=== PATIENT | male | born 1985 | race Caucasian/White ===

== ENCOUNTER 2018-08-09 05:21 | Emergency (ER) | payer SELFPAY ==
[~2018-08-09] VITALS: Ht 177.8 cm; Wt 68.0 kg
[~2018-08-09 05:21] MED LIST: CLIN-62 PO; DOXY100C2 PO; HYDR1TAB PO; SULF1TAB38 PO
--- OUTSIDE RECORDS SUMMARY | 2018-08-09 05:27 | XMS REPORT ---
Author Author Migration, Doctor Organization [facility] Address Unknown Phone Unavailable Care Team Providers Care Rock Crusher Name Role Phone Migration, Doctor Unavailable Unavailable PROBLEMS Type Condition ICD9-CM Code XUT64-TC Code Onset Dates Condition Status SNOMED Code Problem Lumbago 724.2 Active 163782647 ALLERGIES No Information ENCOUNTERS Encounter Location Date Diagnosis [facility] [id number] [place] [phone] May, Acute bilateral low back pain without sciatica M54.5 [facility] [id number] [place] [phone] Sep, Acute pain of right knee M25.561 and Acute midline low back pain without sciatica M54.5 [facility] [id number] [place] [phone] Aug, Chest wall injury, initial encounter S29.9XXA [facility] [id number] [place] [phone] Jun, [facility] [id number] [place] [phone] Jun, [facility] [id number] [place] [phone] Dec, [facility] [id number] [place] [phone] Dec, [facility] [id number] [place] [phone] Dec, [facility] [id number] [place] [phone] Dec, [facility] [id number] [place] [phone] Feb, IMMUNIZATIONS No Known Immunizations SOCIAL HISTORY Never Assessed REASON FOR VISIT EMR-[facility] PLAN OF CARE VITAL SIGNS MEDICATIONS No Known Medications RESULTS No Results PROCEDURES No Known procedures INSTRUCTIONS MEDICATIONS ADMINISTERED No Known Medications
--- OUTSIDE RECORDS SUMMARY | 2018-08-09 05:27 | XMS REPORT | Continuity of Care Document ---
Author Organization Unknown Address Unknown Allergies Active Description Code Type Severity Reaction Onset Reported/Identified Relationship to Patient Clinical Status Yes Penicillins Drug Allergy N/A N/A 09/21/2008 Yes Sulfa (Sulfonamide Antibiotics) Drug Allergy N/A N/A 01/11/2014 Medications There is no data. Problems Date Dx Coded Attending Type Code Diagnosis Diagnosed By 02/22/2008 LUCHO FOX DO 388.70 EAR ACHE 02/22/2008 LUCHO FOX DO 522.5 PERIAPICAL ABSCESS WITHOUT SINUS 02/22/2008 LUHCO FOX DO 528.9 MOUTH PAIN 09/21/2008 LUCHO FOX DO 535.50 GASTRITIS 09/21/2008 LUCHO FOX DO 780.60 fever [as symptom] 01/11/2014 LUCHO FOX DO 724.2 LUMBAGO/ LOW BACK PAIN Procedures Code [place] [address] XRAY LUMBAR SPINE 2 OR 3 VIEWS 01/11/2014 Results There is no data. Encounters ACCT No. Visit Date/Time Discharge Status Pt. Type Provider Facility Loc./Unit Complaint [id number] 01/11/2014 10:35:00 01/11/2014 23:59:59 [facility] Outpatient LUCHO FOX DO [id number] 08/13/2012 15:07:00 08/13/2012 23:59:59 [facility] Outpatient [id number] 06/15/2017 14:45:00 06/15/2017 23:59:59 [facility] Outpatient DAVID KEN APRN [facility]
--- OUTSIDE RECORDS SUMMARY | 2018-08-09 05:27 | XMS REPORT ---
Author Author SHANNEN DEL VALLE [facility] Address [address] [place] [address] Care Team Providers Care Seasonal Delivery Driver Name Role Phone SHANNEN DEL VALLE Unavailable PROBLEMS Type Condition ICD9-CM Code LKV00-TY Code Onset Dates Condition Status SNOMED Code Problem Lumbago 724.2 Active 989350830 ALLERGIES Substance Reaction Event Type Date Status Penicillin V Potassium shortness of breath Drug Allergy May, Active Sulfa (sulfonamide Antibiotics) Unknown Non Drug Allergy May, Active ENCOUNTERS Encounter Location Date Diagnosis [facility] [id number] [place] [phone] May, Acute bilateral low back pain without sciatica M54.5 [facility] [id number] [place] [phone] Sep, Acute pain of right knee M25.561 and Acute midline low back pain without sciatica M54.5 [facility] [id number] [place] [phone] Aug, Chest wall injury, initial encounter S29.9XXA [facility] [id number] [place] [phone] Jun, [facility] [id number] [place] [phone] Jun, [facility] [address] [phone] Dec, [facility] [id number] [place] [phone] Dec, [facility] [address] [phone] Dec, [facility] [address] [facility] [id number] [place] [address] Dec, [facility] [address] [facility] [id number] [place] [address] Feb, IMMUNIZATIONS No Known Immunizations SOCIAL HISTORY Never Assessed REASON FOR VISIT back pain- says he fell from a building several months ago, has gotten worse las t couple weeks [id number] PLAN OF CARE Activity Details Follow Up 2 Months Reason: VITAL SIGNS Height 70 in 2017-06-15 Weight 153.0 lbs 2017-06-15 Temperature 98.2 degrees Fahrenheit 2017-06-15 Heart Rate 64 bpm 2017-06-15 Respiratory Rate 18 2017-06-15 BMI 21.95 kg/m2 2017-06-15 Blood pressure systolic 110 mmHg 2017-06-15 Blood pressure diastolic 70 mmHg 2017-06-15 MEDICATIONS Medication Instructions Dosage Frequency Start Date End Date Duration Status Ibuprofen 800 mg 1 tablet with food or milk as needed 8h Dec, Not-Taking cyclobenzaprine 10 mg 1 Tablet by Po route 3 times per day for muscle spasm Dec, Not-Taking Richardson 5-325 MG Orally every 6 hrs 1 tablet as needed 6h Sep, Not-Taking RESULTS Name Result Date Reference Range UA LONG DIP (IN HOUSE) 2017-06-15 Lot # [id number] Exp date 2018-01-20 Clarity clear Color yellow Odor none GLU negative BENNY negative KET negative SG 1.025 BLO negative pH 7.0 Protein negative URO 0.2 NIT negative MARISA negative Lot # [id number] Exp date June 2017 PROCEDURES Procedure Date Ordered Result Body Site URINALYSIS, AUTO, W/O SCOPE June 15, 2017 INSTRUCTIONS MEDICATIONS ADMINISTERED No Known Medications
--- OUTSIDE RECORDS SUMMARY | 2018-08-09 05:27 | XMS REPORT ---
Author Author HEATHER DIA Organization [facility] Address [address] [place] [address] Care Team Providers Care Spinner Continuous Name Role Phone HEATHER DIA Unavailable PROBLEMS Type Condition ICD9-CM Code CFL39-UR Code Onset Dates Condition Status SNOMED Code Problem Lumbago 724.2 Active [id number] ALLERGIES Substance Reaction Event Type Date Status Penicillin V Potassium shortness of breath Drug Allergy Aug, Active Sulfa (sulfonamide Antibiotics) Unknown Non Drug Allergy Aug, Active ENCOUNTERS Encounter Location Date Diagnosis [facility] [id number] [place] [phone] Sep, Acute pain of right knee M25.561 and Acute midline low back pain without sciatica M54.5 [facility] [id number] [place] [phone] Aug, Chest wall injury, initial encounter S29.9XXA [facility] [id number] [place] [phone] Jun, [facility] [id number] [place] [phone] Jun, [facility] [id number] [place] [phone] Dec, [facility] [id number] [place] [phone] Dec, [facility] [id number] [place] [phone] Dec, [facility] [id number] [place] [phone] Dec, [facility] [address] [place] [address] Feb, IMMUNIZATIONS No Known Immunizations SOCIAL HISTORY Never Assessed REASON FOR VISIT 5 days ago...was getting into his van...slipped and landed on a freon bottle. no w his right ribs are sore and painful. [email or web address] PLAN OF CARE VITAL SIGNS Height 70 in 2016-09-10 Weight 148.0 lbs 2016-09-10 Temperature 97.9 degrees Fahrenheit 2016-09-10 Heart Rate 74 bpm 2016-09-10 Respiratory Rate 20 2016-09-10 BMI 21.23 kg/m2 2016-09-10 Blood pressure systolic 112 mmHg 2016-09-10 Blood pressure diastolic 68 mmHg 2016-09-10 MEDICATIONS Medication Instructions Dosage Frequency Start Date End Date Duration Status [place] 5-325 MG Orally every 6 hrs 1 tablet as needed 6h Aug, Active RESULTS Name Result Date Reference Range Xray : Chest (IN HOUSE) 2016-09-10 PROCEDURES Procedure Date Ordered Result Body Site CHEST X-RAY September 10, 2016 INSTRUCTIONS MEDICATIONS ADMINISTERED No Known Medications
[2018-08-09] MEDS ORDERED: RX-NEO/POLYB/HC OTIC (CORTISPORIN) SUSP 10 ML BTL OT STA (05:48)
--- NOTE | 2018-08-09 05:51 | ED EENT ---
History of Present Illness General Chief Complaint: Ear Problems Stated Complaint: EAR ACHE Nursing Triage Note: LEFT EARACHE Source: patient Exam Limitations: no limitations History of Present Illness Date Seen by Provider: August 09, 2018 Time Seen by Provider: 05:42 Initial Comments This 33-year-old man presents to the emergency room with intense a left earache that woke him as 02:30. He has had upper respiratory symptoms recently but states those have pretty well resolved. He used some eardrops this morning that his had at the house. He has not taken any oral medications for pain. Patient also has very poor dentition and wonders if the pain may be originating from his teeth. It is difficult for him to differentiate the source of pain. He is afebrile. Allergies and Home Medications Allergies Coded Allergies: Sulfa(Sulfonamide Antibiotics) (Verified Allergy, 07/12/11) Penicillins (Unverified Adverse Reaction, Intermediate, THROAT SWELLING, HIVES, 02/09/11) Uncoded Allergies: MOLD (Allergy, 07/12/11) Home Medications Clindamycin HCl 300 Mg Capsule, 300 MG PO QID Prescribed by: PORFIRIO ESPINOZA on 08/09/18 0556 Patient Home Medication List Home Medication List Reviewed: Yes Review of Systems Review of Systems Constitutional: no symptoms reported Eyes: No Symptoms Reported Ears: See HPI Nose: no symptoms reported Mouth: see HPI Throat: no symptoms reported Respiratory: no symptoms reported Cardiovascular: no symptoms reported Gastrointestinal: no symptoms reported Musculoskeletal: no symptoms reported Skin: no symptoms reported Neurological: No Symptoms Reported Hematologic/Lymphatic: No Symptoms Reported Past Klezslx-Fjzjxq-Jujxch Hx Patient Social History Alcohol Use: Denies Use Recreational Drug Use: No Smoking Status: Current Everyday Smoker Type Used: Cigars 2nd Hand Smoke Exposure: Yes Recent Foreign Travel: No Contact w/Someone Who Travel: No Recent Infectious Disease Expo: No Recent Hopitalizations: No Immunizations Up To Date Tetanus Booster (TDap): Unknown Seasonal Allergies Seasonal Allergies: No Past Medical History Surgeries: No Respiratory: No Cardiac: No Neurological: No Genitourinary: No Gastrointestinal: No Musculoskeletal: No Endocrine: No HEENT: No Cancer: No Psychosocial: No Integumentary: No Blood Disorders: No Physical Exam Vital Signs Vital Signs - First Documented 08/09/18 05:27 Temp 97.9 Pulse 69 Resp 16 B/P (MAP) 116/77 (90) Pulse Ox 99 O2 Delivery Room Air Height, Weight, BMI Height: 5'10" Weight: 150lbs. oz. 68.239597ud; 20.80 BMI Method:Stated General Appearance: WD/WN, mild distress Eyes: bilateral eye normal inspection, bilateral eye PERRL, bilateral eye EOMI Ears: right ear canal normal, right ear TM normal; left ear erythema, left ear tenderness, left ear TM red, left ear other (there is bright erythema around the superior rim of the left TM. It is difficult to determine if this is on the canal side or posterior to the edge of the TM.); bilateral ear auricle normal Nose: normal inspection Mouth/Throat: pharynx normal, other (poor dentition with gingival inflammation and decay of some teeth down to the root. No overt abscess.) Neck: non-tender, normal inspection; No lymphadenopathy (R), No lymphadenopathy (L) Cardiovascular: regular rate, rhythm, no edema, no murmur Respiratory: lungs clear, normal breath sounds, no respiratory distress Neurologic/Psychiatric: beam racker II-XII nml as tested, no motor/sensory deficits, alert, normal mood/affect Skin: normal color, warm/dry Progress/Results/Core Measures Results/Orders My Orders Orders - PORFIRIO ROBLES MD Rx-Dane/Poly/Hc Otic Susp (Rx-Cortisporin (08/09/18 05:48) Clindamycin Capsule (Cleocin Capsule) (08/09/18 06:00) Ibuprofen Tablet (Motrin Tablet) (08/09/18 06:00) Medications Given in ED Current Medications Medications Dose Ordered Sig/Staci Route Start Time Stop Time Status Last Admin Dose Admin Clindamycin HCl 300 mg ONCE ONCE PO 08/09/18 06:00 08/09/18 06:01 08/09/18 05:55 300 MG Ibuprofen 600 mg ONCE ONCE PO 08/09/18 06:00 08/09/18 06:01 08/09/18 05:56 600 MG Vital Signs/I&O 08/09/18 05:27 Temp 97.9 Pulse 69 Resp 16 B/P (MAP) 116/77 (90) Pulse Ox 99 O2 Delivery Room Air Blood Pressure Mean: 90 Progress Progress Note : Progress Note On exam that was difficult to determine if the erythema was external to the TM or behind the TM. Patient was treated with both clindamycin and Cortisporin drops. Ibuprofen was given for pain. Clindamycin should also help with inflammation associated with the poor dentition. Patient was encouraged to visit a dentist as soon as possible. Departure Impression Primary Impression: Left otitis media Qualified Codes: H66.002 - Acute suppurative otitis media without spontaneous rupture of ear drum, left ear Additional Impressions: Dental decay Acute gingivitis Disposition: HOME, SELF-CARE Condition: Improved Departure-Patient Inst. Decision time for Depature: 05:45 Referrals: NO,LOCAL PHYSICIAN (PCP/Family) Primary Care Physician Patient Instructions: Ear Infections (Otitis Media) (DC), Tooth Decay, Adult Add. Discharge Instructions: Complete the antibiotics as prescribed. For pain take ibuprofen up to 600 mg every 6 hours as needed and/or Tylenol (acetaminophen) up to 1000 mg every [address] 4 drops of the provided eardrops in the affected ear 4 times daily for 5 days. Return to care if symptoms are worsening or not gradually improving over the next couple of days. Gently brush your teeth twice daily with a soft bristle toothbrush. See dentist as soon as possible. Work toward quitting smoking. All discharge instructions reviewed with patient and/or family. Voiced understanding. Scripts Clindamycin HCl (Clindamycin HCl) 300 Mg Capsule 300 MG PO QID, #40 CAP Prov: PORFIRIO ROBLES MD 08/09/18 PORFIRIO ROBLES MD August 09, 2018 05:51
[2018-08-09] MEDS ORDERED: CLIN300C11 PO (05:56)
[2018-08-09 05:59] VITALS: BP 116/77
[2018-08-09] MEDS ORDERED: CLINDAMYCIN 150 MG (CLEOCIN) CAP PO ONE (06:00)
[2018-08-09] MEDS ORDERED: IBUPROFEN TABLET 200 MG TAB PO ONE (06:00)
== END 2018-08-09 05:59 | disposition home or self-care (01) ==
LOC: EDUNIT# 05:21 → ER 05:23
DX: H66.92 Otitis media, unspecified, left ear (principal); K02.9 Dental caries, unspecified; K05.00 Acute gingivitis, plaque induced; F17.290 Nicotine dependence, other tobacco product, uncomplicated; Z88.2 Allergy status to sulfonamides; Z88.0 Allergy status to penicillin; Z88.8 Allergy status to other drugs, medicaments and biological substances
CPT/HCPCS: 99283

== ENCOUNTER 2018-11-02 19:07 | Emergency (ER) | payer SELFPAY ==
[~2018-11-02] VITALS: Ht 177.8 cm; Wt 68.0 kg
[~2018-11-02 19:07] MED LIST changes: +CLIN300C11 PO
[2018-11-02] MEDS ORDERED: ASPIRIN 81 MG CHEW (CHILDREN'S ASA) ONE (19:09)
[2018-11-02 19:25] LABS: BASOPHILS % (AUTO) 0 % (0-10); EOSINOPHILS # (AUTO) 0.3 10^3/uL (0.0-0.3); EOSINOPHILS % (AUTO) 2 % (0-10); HEMATOCRIT 47 % (40-54); HEMOGLOBIN 16.8 G/DL (13.3-17.7); LYMPHOCYTES % (AUTO) 31 % (12-44); MEAN CORPUSCULAR HEMOGLOBIN 34 PG (25-34); MEAN CORPUSCULAR HGB CONC 36 G/DL (32-36); MEAN CORPUSCULAR VOLUME 95 FL (80-99); MEAN PLATELET VOLUME 8.8 FL (7.4-10.4); MONOCYTES % (AUTO) 8 % (0-12); NEUTROPHILS # (AUTO) 7.7 X 10^3 (1.8-7.8); NEUTROPHILS % (AUTO) 59 % (42-75); PLATELET COUNT 265 10^3/uL (130-400); RED CELL DISTRIBUTION WIDTH 13.2 % (10.0-14.5); WHITE BLOOD COUNT 12.9 10^3/uL (4.3-11.0)
--- NOTE | 2018-11-02 19:36 | Diagnostic Imaging Report ---
INDICATION: Chest pain. TIME OF EXAM: 7:27 PM COMPARISON: No prior studies are available for comparison. FINDINGS: The heart size is normal. The pulmonary vascularity is unremarkable. The lungs are clear. No infiltrate, effusion or pneumothorax is detected. IMPRESSION: No acute cardiopulmonary process is detected. Dictated by: Dictated on workstation # [id number]
[2018-11-02 19:40] LABS: ALANINE AMINOTRANSFERASE 35 U/L (0-55); ALBUMIN 4.8 GM/DL (3.2-4.5); ALKALINE PHOSPHATASE 84 U/L (40-136); BILIRUBIN,TOTAL 0.4 MG/DL (0.1-1.0); BUN/CREATININE RATIO 16; CALCIUM 9.8 MG/DL (8.5-10.1); CARBON DIOXIDE 24 MMOL/L (21-32); CHLORIDE 105 MMOL/L (98-107); CREATININE SERUM 0.97 MG/DL (0.60-1.30); GFR ESTIMATED > 60; GLUCOSE 94 MG/DL (70-105); POTASSIUM 3.8 MMOL/L (3.6-5.0); SODIUM 142 MMOL/L (135-145); TOTAL PROTEIN 8.2 GM/DL (6.4-8.2)
[2018-11-02] MEDS ORDERED: ASPIRIN 81 MG CHEW (CHILDREN'S ASA) PO ONE (19:45)
[2018-11-02 19:51] LABS: INR 0.9 (0.8-1.4); PARTIAL THROMBOPLASTIN TIME 29 SEC (24-35); PROTHROMBIN TIME PATIENT 12.8 SEC (12.2-14.7)
[2018-11-02 19:52] LABS: FIBRIN DEGRADATION PRODUCTS < 0.27 UG/ML (0.00-0.49)
[2018-11-02 19:55] LABS: MAGNESIUM 2.4 MG/DL (1.6-2.4)
--- NOTE | 2018-11-02 20:01 | ED Chest Pain ---
General Chief Complaint: Chest Pain Stated Complaint: CP Nursing Triage Note: Pt amb to room #4 w/o difficulty. a&ox4. 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 Pt reports @ time of onset of symptoms he noticed "purple/blue" coloring noted to his anterior chest. Pt denies chest discomfort @ this current time. Nursing Sepsis Screen: No Definite Risk Source: patient Exam Limitations: no limitations History of Present Illness Date Seen by Provider: Nov 02, 2018 Time Seen by Provider: 19:09 Initial Comments This 33-year-old young man presents to the emergency room with sudden onset of chest pain that started about 30 minutes prior to arrival. 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 Pain was in the lower sternal area. He reports that area appeared bluish or purplish at the time. He also felt lightheaded, short of breath and shaky/weak. He denies any alleviating or exacerbating factors. Pain was initially sharp but is mild and aching in nature on arrival. Pain resolved during evaluation. He does smoke but denies any drug or alcohol use. He has never experienced anything like this in the past. Allergies and Home Medications Allergies Coded Allergies: Sulfa(Sulfonamide Antibiotics) (Verified Allergy, 07/12/11) Penicillins (Unverified Adverse Reaction, Intermediate, THROAT SWELLING, HIVES, 02/09/11) Uncoded Allergies: MOLD (Allergy, 07/12/11) Home Medications Clindamycin HCl 300 Mg Capsule, 300 MG PO QID Prescribed by: PORFIRIO ESPINOZA on 08/09/18 0556 Patient Home Medication List Home Medication List Reviewed: Yes Review of Systems Review of Systems Constitutional: see HPI EENTM: No Symptoms Reported Respiratory: See HPI Cardiovascular: See HPI Gastrointestinal: No Symptoms Reported Genitourinary: No Symptoms Reported Musculoskeletal: no symptoms reported Skin: no symptoms reported Psychiatric/Neurological: No Symptoms Reported Endocrine: No Symptoms Reported Hematologic/Lymphatic: No Symptoms Reported Past Qrigfhz-Ztvvom-Dxpmvw Hx Past Med/Social Hx: Reviewed and Corrections made Patient Social History Alcohol Use: Denies Use Recreational Drug Use: No Drug of Choice: prior marijuana use Smoking Status: Current Everyday Smoker Type Used: Cigars 2nd Hand Smoke Exposure: Yes Recent Foreign Travel: No Contact w/Someone Who Travel: No Recent Infectious Disease Expo: No Recent Hopitalizations: No Immunizations Up To Date Tetanus Booster (TDap): Unknown Seasonal Allergies Seasonal Allergies: No Past Medical History Surgeries: Yes (R knee ) Orthopedic Respiratory: No Cardiac: No Neurological: No Genitourinary: No Gastrointestinal: No Musculoskeletal: No Endocrine: No HEENT: No Cancer: No Psychosocial: No Integumentary: No Blood Disorders: No Physical Exam Vital Signs Vital Signs - First Documented Capillary Refill : Less Than 3 Seconds Height, Weight, BMI Height: 5'10.00" Weight: 150lbs. oz. 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 Norm as Tested Skin: Normal Color, Warm/Dry Progress/Results/Core Measures Results/Orders Lab Results Laboratory Tests Test 11/02/18 19:13 11/02/18 21:04 Range/Units White Blood Count 12.9 H 4.3-11.0 10^3/uL Red Blood Count 4.98 4.35-5.85 10^6/uL Hemoglobin 16.8 13.3-17.7 G/DL Hematocrit 47 40-54 % Mean Corpuscular Volume 95 80-99 FL Mean Corpuscular Hemoglobin 34 25-34 PG Mean Corpuscular Hemoglobin Concent 36 32-36 G/DL Red Cell Distribution Width 13.2 10.0-14.5 % Platelet Count 265 130-400 10^3/uL Mean Platelet Volume 8.8 7.4-10.4 FL Neutrophils (%) (Auto) 59 42-75 % Lymphocytes (%) (Auto) 31 12-44 % Monocytes (%) (Auto) 8 0-12 % Eosinophils (%) (Auto) 2 0-10 % Basophils (%) (Auto) 0 0-10 % Neutrophils # (Auto) 7.7 1.8-7.8 X 10^3 Lymphocytes # (Auto) 4.0 1.0-4.0 X 10^3 Monocytes # (Auto) 1.0 0.0-1.0 X 10^3 Eosinophils # (Auto) 0.3 0.0-0.3 10^3/uL Basophils # (Auto) 0.0 0.0-0.1 10^3/uL Prothrombin Time 12.8 12.2-14.7 SEC INR Comment 0.9 0.8-1.4 Activated Partial Thromboplast Time 29 24-35 SEC D-Dimer < 0.27 0.00-0.49 UG/ML Sodium Level 142 135-145 MMOL/L Potassium Level 3.8 3.6-5.0 MMOL/L Chloride Level 105 98-107 MMOL/L Carbon Dioxide Level 24 21-32 MMOL/L Anion Gap 13 5-14 MMOL/L Blood Urea Nitrogen 16 7-18 MG/DL Creatinine 0.97 0.60-1.30 MG/DL Estimat Glomerular Filtration Rate > 60 BUN/Creatinine Ratio 16 Glucose Level 94 70-105 MG/DL Calcium Level 9.8 8.5-10.1 MG/DL Corrected Calcium 8.5-10.1 MG/DL Magnesium Level 2.4 1.6-2.4 MG/DL Total Bilirubin 0.4 0.1-1.0 MG/DL Aspartate Amino Transf (AST/SGOT) 33 5-34 U/L Alanine Aminotransferase (ALT/SGPT) 35 0-55 U/L Alkaline Phosphatase 84 40-136 U/L Myoglobin 48.8 10.0-92.0 NG/ML Troponin I < 0.028 < 0.028 <0.028 NG/ML Total Protein 8.2 6.4-8.2 GM/DL Albumin 4.8 H 3.2-4.5 GM/DL My Orders Orders - PORFIRIO ROBLES MD Aspirin Chewable Tablet (Baby Aspirin Ch (11/02/18 19:09) Cbc With Automated Diff (11/02/18 19:18) Magnesium (11/02/18 19:18) Ekg Tracing (11/02/18 19:18) Cardiac Profile 1 (11/02/18 19:18) Comprehensive Metabolic Panel (11/02/18 19:18) Myoglobin Serum (11/02/18 19:18) Protime With Inr (11/02/18 19:18) Partial Thromboplastin Time (11/02/18 19:18) O2 (11/02/18 19:18) Monitor-Rhythm Ecg Trace Only (11/02/18 19:18) Ed Iv/Invasive Line Start (11/02/18 19:18) Chest Pa/Lat (2 View) (11/02/18 19:18) Fibrin Degradation Products (11/02/18 19:13) Aspirin Chewable Tablet (Baby Aspirin Ch (11/02/18 19:45) Troponin I (11/02/18 21:15) Medications Given in ED Vital Signs/I&O 11/02/18 11/02/18 11/02/18 19:10 19:10 22:09 Temp 97.5 97.5 Pulse 89 64 Resp 18 17 B/P (MAP) 134/97 (109) 112/68 (83) Pulse Ox 98 99 O2 Delivery Room Air Room Air Room Air Blood Pressure Mean: 109 Progress Progress Note : Progress Note Patient was given aspirin. Chest pain workup was pursued. Workup was unremarkable and pain resolved spontaneously without interventions. A repeat troponin was process 2 hours after the initial. Patient remained pain free and was discharged home with instructions for outpatient follow-up. Initial ECG Impression Date: Nov 02, 2018 Initial ECG Impression Time: 19:09 Initial ECG Rate: 67 Initial ECG Rhythm: Normal Sinus Initial ECG Intervals: Normal Initial ECG Impression: Normal Comment Normal sinus rhythm with no ST elevation or depression. Early repolarization consistent with juvenile pattern. Borderline right axis deviation. No abnormal intervals. Diagnostic Imaging Diagonstic Imaging: Xray Plain Films/CT/US/NM/MRI: chest Comments Chest x-ray viewed by me and report reviewed. See report below: NAME: MANISH MILLS [facility] REC#: [id number] PT STATUS: REG ER : 1985 PHYSICIAN: PORFIRIO ROBLES MD ADMIT DATE: 11/02/18/ER Dr reyna Date of Exam:11/02/18 CHEST PA/LAT (2 VIEW) INDICATION: Chest pain. TIME OF EXAM: 7:27 PM COMPARISON: No prior studies are available for comparison. FINDINGS: The heart size is normal. The pulmonary vascularity is unremarkable. The lungs are clear. No infiltrate, effusion or pneumothorax is detected. IMPRESSION: No acute cardiopulmonary process is detected. Dictated on workstation # [id number] Dict: 11/02/181928 Trans: 11/02/181934 [id number] Interpreted by: CHINO DE GUZMAN MD Departure Impression Primary Impression: Chest pain Qualified Codes: R07.9 - Chest pain, unspecified Disposition: HOME, SELF-CARE Condition: Improved Departure-Patient Inst. Decision time for Depature: 21:45 Referrals: NO,LOCAL PHYSICIAN (PCP/Family) Primary Care Physician Patient Instructions: Chest Pain (DC) Add. Discharge Instructions: Follow-up with a primary care provider as soon as possible. If symptoms of chest pain, lightheadedness, or shortness of breath return, please return to the emergency room. Check your pulse if you have these symptoms. If your pulses rapid or cannot be determined, bear down for 10-20 seconds. If this does not resolve the symptoms, return to the emergency room. Work toward quitting smoking. All discharge instructions reviewed with patient and/or family. Voiced understanding. PORFIRIO ROBLES MD Nov 02, 2018 20:01
[2018-11-02 22:09] VITALS: BP 112/68
== END 2018-11-02 22:09 | disposition home or self-care (01) ==
LOC: EDUNIT# 19:07 → ER 19:08
DX: R07.9 Chest pain, unspecified (principal); F17.290 Nicotine dependence, other tobacco product, uncomplicated; Z88.2 Allergy status to sulfonamides; Z88.0 Allergy status to penicillin
CPT/HCPCS: 36415; 71046; 80053; 83735; 83874; 84484; 85025; 85379; 85610; 85730; 93005; 93041

== ENCOUNTER 2022-04-02 17:00 | Emergency (ER) | payer OTHER ==
[~2022-04-02] VITALS: Ht 178 cm; Wt 77.0 kg
[~2022-04-02 17:00] MED LIST changes: +CLIN-144 PO; -CLIN300C11 PO
[2022-04-02] MEDS ORDERED: ACHD5005 PO (17:19)
[2022-04-02] MEDS ORDERED: CYCL5TAB PO (17:19)
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
[2022-04-02 17:23] VITALS: BP 144/85
== END 2022-04-02 17:23 | disposition home or self-care (01) ==
LOC: EDUNIT# 17:00 → ER 17:03
DX: M54.50 Low back pain, unspecified (principal); F17.210 Nicotine dependence, cigarettes, uncomplicated; Z28.310 Unvaccinated for COVID-19
CPT/HCPCS: 99281